=== PATIENT | female | born 1990 ===

== ENCOUNTER 2017-03-02 17:42 | Emergency (ER) | payer OTHER ==
[2017-03-02 17:48] VITALS: BP 132/98; RESP 18; TEMP 98.7; O2SAT 99
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
[2017-03-02 18:47] VITALS: PULSE 101
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
--- NOTE | 2017-03-04 17:49 | CARD ---
APPROVED REPORT EKG Measurement Heart [id number] <Conclusion> Sinus tachycardia Otherwise normal ECG
== END 2017-03-02 20:16 | disposition home or self-care (01) ==
LOC: H.ER 17:42
DX: R07.89 Other chest pain (principal); V43.52XA Car driver injured in collision with other type car in traffic accident, initial encounter; Y92.410 Unspecified street and highway as the place of occurrence of the external cause; Z88.0 Allergy status to penicillin